=== PATIENT | female | born 1955 | race African-American/Black ===

== ENCOUNTER 2018-06-01 12:41 | Emergency (ER) | payer OTHER ==
[~2018-06-01] VITALS: Ht 165.1 cm; Wt 73.0 kg
[2018-06-01] MEDS ORDERED: ONDANSETRON HCL 4MG/2ML VIAL IV ONE (14:00)
[2018-06-01] MEDS ORDERED: KETOROLAC 15MG/ML VIAL IV ONE (14:15)
[2018-06-01 14:17] LABS: BASOPHILS % 0.9 % (0.0-2.0); EOSINOPHILS % 4.7 % (0.0-5.0); HEMOGLOBIN. 13.5 g/dL (12.0-16.0); LYMPHOCYTES % 30.9 % (20.0-50.0); MEAN CORPUSCULAR HEMOGLOBIN 28.6 pg (28.0-32.0); MEAN CORPUSCULAR VOLUME 87.1 fL (81.0-99.0); MEAN PLATELET VOLUME 9.6 fl (7.4-10.4); MONOCYTES % 6.2 % (2.0-8.0); NEUTROPHILS % 57.3 % (40.0-76.0); PLATELET 185 x1000/uL (130-400); RED BLOOD CELL COUNT 4.71 mill/uL (4.2-5.4)
[2018-06-01 14:24] LABS: CHLORIDE 107 mEq/L (98-107)
[2018-06-01] MEDS ORDERED: FUROSEMIDE 40MG/4ML VIAL IVP ONE (16:30)
[2018-06-01] MEDS ORDERED: ASPIRIN 81MG TABLET PO ONE (16:30)
[2018-06-01 17:12] LABS: INR 2.4; PROTHROMBIN TIME 24.4 sec (9.4-11.6)
[2018-06-01 20:02] VITALS: BP 124/106
== END 2018-06-01 20:10 | disposition short-term general hospital (02) ==
LOC: ER 14:22
DX: I11.0 Hypertensive heart disease with heart failure (principal); I50.9 Heart failure, unspecified; I21.4 Non-ST elevation (NSTEMI) myocardial infarction; I45.10 Unspecified right bundle-branch block; R10.33 Periumbilical pain
CPT/HCPCS: 36415; 71045; 74176; 80053; 83690; 83880; 84484; 85025; 85610; 93005; 96374; 96375; 99291; J1885; J1940; J2405; Z7610

== ENCOUNTER 2019-10-25 15:00 | Inpatient (IN) | payer MEDICAID, OTHER ==
[~2019-10-25] VITALS: Ht 165.1 cm; Wt 49.9 kg
[2019-10-25] MEDS ORDERED: ONDANSETRON HCL 4MG/2ML INJ IV STA (16:01)
[2019-10-25] MEDS ORDERED: SODIUM CHLORIDE 0.9% 500 ML IV ONE (16:01)
[2019-10-25 16:39] LABS: BASOPHILS % 0.5 % (0.0-2.0); EOSINOPHILS % 0.4 % (0.0-5.0); HEMATOCRIT. 36.5 % (36.0-48.0); HEMOGLOBIN. 12.2 g/dL (12.0-16.0); LYMPHOCYTES % 15.3 % (20.0-50.0); MEAN CORPUSCULAR HEMOGLOBIN 30.6 pg (28.0-32.0); MEAN CORPUSCULAR VOLUME 91.2 fL (81.0-99.0); MEAN PLATELET VOLUME 9.4 fl (7.4-10.4); MONOCYTES % 9.9 % (2.0-8.0); NEUTROPHILS % 73.9 % (40.0-76.0); PLATELET 181 x1000/uL (130-400); RED CELL DISTRIBUTION WIDTH 14.4 % (11.6-14.6)
[2019-10-25 16:44] LABS: CHLORIDE 108 mEq/L (98-107)
[2019-10-25 18:13] LABS: PROTHROMBIN TIME 56.9 sec (9.6-11.0)
[2019-10-25] MEDS ORDERED: ASPIRIN 81MG TABLET PO ONE (18:15)
[2019-10-25] MEDS ORDERED: ACETAMINOPHEN 325MG TABLET PO PRN (23:15)
[2019-10-25] MEDS ORDERED: IPRATROPIUM/ALBUTEROL 0.5-3(2.5)MG/3ML NEB NEB PRN (23:15)
[2019-10-25] MEDS ORDERED: CLONIDINE 0.1MG TABLET PO PRN (23:15)
[2019-10-25] MEDS ORDERED: DOCUSATE SODIUM 100MG CAPSULE PO PRN (23:15)
[2019-10-26] MEDS ORDERED: FURO20TA4 PO (00:36)
[2019-10-26] MEDS ORDERED: LISI-186 PO (00:36)
[2019-10-26] MEDS ORDERED: CARV6.2548 PO (00:36)
[2019-10-26] MEDS ORDERED: LOVA40TA73 PO (00:36)
[2019-10-26] MEDS ORDERED: NITR25CA2 MT (00:36)
[2019-10-26] MEDS ORDERED: SPIR50TA5 PO (00:36)
[2019-10-26] MEDS ORDERED: WARF-67 PO (00:36)
[2019-10-26 01:06] VITALS: BP 106/61
[2019-10-26] MEDS: ONDANSETRON HCL 4MG/2ML INJ IV PRN ×2 (01:27→11:06)
[2019-10-26] MEDS: HYDROCODONE/ACETAMINOPHEN 5/325MG TABLET PO PRN ×2 (01:29→18:04)
[2019-10-26 04:00] VITALS: BP 104/71
[2019-10-26 08:44] LABS: CLARITY URINE CLOUDY (CLEAR); COLOR URINE YELLOW (YELLOW); KETONES URINE NEGATIVE (NEGATIVE); LEUKOCYTE ESTERASE URINE 3+ (NEGATIVE); NITRITE URINE NEGATIVE (NEGATIVE); OCCULT BLOOD URINE 2+ (NEGATIVE); PROTEIN URINE NEGATIVE (NEGATIVE); SPECIFIC GRAVITY URINE 1.014 (1.005-1.030)
[2019-10-26 08:50] VITALS: BP 128/88
[2019-10-26] MEDS: ASPIRIN 81MG EC TABLET PO SCH (09:12)
[2019-10-26 09:30] LABS: *AMPHETAMINES SCREEN URINE NEGATIVE (NEGATIVE); *BARBITURATES SCREEN URINE NEGATIVE (NEGATIVE); *BENZODIAZEPINES SCREEN URINE NEGATIVE (NEGATIVE); *COCAINE SCREEN URINE NEGATIVE (NEGATIVE); METHADONE URINE SCREEN NEGATIVE (NEGATIVE)
[2019-10-26 09:31] LABS: CANNABINOID URINE SCREEN PRESUMTIVE POSITIVE (NEGATIVE); OPIATES URINE SCREEN PRESUMTIVE POSITIVE (NEGATIVE); PHENCYCLIDINE URINE SCREEN NEGATIVE (NEGATIVE)
[2019-10-26 12:03] LABS: BASOPHILS % 0.4 % (0.0-2.0); EOSINOPHILS % 0.4 % (0.0-5.0); HEMATOCRIT. 35.4 % (36.0-48.0); HEMOGLOBIN. 11.7 g/dL (12.0-16.0); LYMPHOCYTES % 18.5 % (20.0-50.0); MEAN CORPUSCULAR HEMOGLOBIN 30.2 pg (28.0-32.0); MEAN CORPUSCULAR VOLUME 91.7 fL (81.0-99.0); MEAN PLATELET VOLUME 9.6 fl (7.4-10.4); MONOCYTES % 11.5 % (2.0-8.0); NEUTROPHILS % 69.2 % (40.0-76.0); PLATELET 183 x1000/uL (130-400); RED BLOOD CELL COUNT 3.86 mill/uL (4.2-5.4); RED CELL DISTRIBUTION WIDTH 14.1 % (11.6-14.6)
[2019-10-26 12:28] LABS: CREATINE KINASE MB FRACTION 1.8 ng/mL (0.5-3.6)
[2019-10-26] MEDS: CEFTRIAXONE 1 G PREMIX 50 ML IV SCH (12:31)
[2019-10-26 12:36] VITALS: BP 130/92
[2019-10-26] MEDS ORDERED: NITROFURANTOIN MACROCRYSTAL 25MG CAPSULE PO SCH (15:00)
[2019-10-26 16:34] VITALS: BP 137/99
[2019-10-26] MEDS ORDERED: FUROSEMIDE 20MG TABLET PO SCH (17:00)
[2019-10-26] MEDS: FUROSEMIDE 40MG/4ML VIAL IVP SCH (17:23)
[2019-10-26 18:52] LABS: CREATINE KINASE MB FRACTION 2.2 ng/mL (0.5-3.6)
[2019-10-26 20:00] VITALS: BP 107/73
[2019-10-26] MEDS: CARVEDILOL 6.25 MG TABLET PO SCH (21:00)
[2019-10-26] MEDS: ATORVASTATIN CALCIUM 40MG TABLET PO SCH (21:28)
[2019-10-27] VITALS (9 sets, daily range): BP systolic 87–110; BP diastolic 54–76
[2019-10-27] MEDS: HYDROCODONE/ACETAMINOPHEN 5/325MG TABLET PO PRN (04:45)
[2019-10-27] MEDS: CEFTRIAXONE 1 G PREMIX 50 ML IV SCH (08:41)
[2019-10-27] MEDS: FUROSEMIDE 40MG/4ML VIAL IVP SCH ×2 (08:41→17:49)
[2019-10-27] MEDS: ASPIRIN 81MG EC TABLET PO SCH (08:42)
[2019-10-27] MEDS: CARVEDILOL 6.25 MG TABLET PO SCH ×2 (08:45→20:59)
[2019-10-27] MEDS ORDERED: POTASSIUM CHLORIDE 20MEQ TABLET SR PO SCH (09:00)
[2019-10-27] MEDS ORDERED: SPIRONOLACTONE 50MG TABLET PO SCH (09:00)
[2019-10-27] MEDS ORDERED: LISINOPRIL 5MG TABLET PO SCH (09:00)
[2019-10-27 13:09] LABS: PROTHROMBIN TIME 46.1 sec (9.6-11.0)
[2019-10-27 13:32] LABS: INR 4.8
[2019-10-27] MEDS: ATORVASTATIN CALCIUM 40MG TABLET PO SCH (21:00)
== END 2019-10-27 21:43 | disposition short-term general hospital (02) | DRG 190 ==
LOC: ER 15:00 → 6WST 21:32 → EDBEDREQTM 21:49 → EDBEDREQ 21:49 → ENRESERV 22:46
PROVIDERS: ADMIT Internal Medicine; ATTEND Internal Medicine
DX: I21.4 Non-ST elevation (NSTEMI) myocardial infarction (principal); D68.9 Coagulation defect, unspecified; I42.9 Cardiomyopathy, unspecified; I50.9 Heart failure, unspecified; I11.0 Hypertensive heart disease with heart failure; N39.0 Urinary tract infection, site not specified; Z79.01 Long term (current) use of anticoagulants; Z95.810 Presence of automatic (implantable) cardiac defibrillator
CPT/HCPCS: 36415; 71045; 76705; 80048; 80061; 80305; 81003; 82550; 82553; 83036; 83735; 83880; 84443; 84484; 93005; 93306; 93970; 99291; J0696; J1940; J2405; J7030